=== PATIENT | male | born 1960 | race African-American/Black ===

== ENCOUNTER 2023-01-24 14:15 | Emergency (ER) | payer MEDICAID ==
[~2023-01-24] VITALS: Ht 167.6 cm; Wt 64.0 kg
[~2023-01-24 14:15] MED LIST: DIVAL250 PO; IBUP-1636 PO; LEVE1000 PO; PHEN100C4 PO
[2023-01-24 15:20] LABS: HEMATOCRIT. 47.3 % (42.0-52.0); HEMOGLOBIN. 16.1 g/dL (14.0-18.0); MEAN CORPUSCULAR HEMOGLOBIN 33.3 pg (28.0-32.0); MEAN CORPUSCULAR VOLUME 97.9 fL (80.0-94.0); MEAN PLATELET VOLUME 9.6 fl (7.4-10.4); PLATELET 278 x1000/uL (130-400); RED BLOOD CELL COUNT 4.83 mill/uL (4.7-6.1); RED CELL DISTRIBUTION WIDTH 13.9 % (11.6-14.6)
[2023-01-24 15:24] LABS: CHLORIDE 108 mEq/L (98-107)
[2023-01-24 15:32] LABS: ETHANOL BLOOD < 10 mg/dL
[2023-01-24 15:52] LABS: PLATELET ESTIMATE NORMAL
[2023-01-24 16:40] VITALS: BP 139/88
== END 2023-01-24 17:20 | disposition home or self-care (01) ==
LOC: ER 14:21
DX: R56.9 Unspecified convulsions (principal)
CPT/HCPCS: 36415; 80053; 80185; 80320; 82140; 85025; 99284; G0480